=== PATIENT | male | born 1995 | race Caucasian/White ===

== ENCOUNTER 2021-09-21 14:38 | Emergency (ER) | payer OTHER ==
[~2021-09-21] VITALS: Ht 177.8 cm; Wt 104.5 kg
[2021-09-21 14:56] VITALS: TEMP 99.4
[2021-09-21] MEDS ORDERED: PROAIR HFA0.09 MG/AC IH (15:01)
[2021-09-21] MEDS ORDERED: RT ADVAIR 228 DISKUS IH (15:03)
[2021-09-21 17:39] LABS: BASO % 0.3 % (0.0-2.0); EOS # 0.1 K/mm3 (0.0-0.7); EOS % 1.3 % (0.0-4.0); GRAN # 1.8 K/mm3 (1.4-6.5); HEMATOCRIT 43.3 % (42.0-52.0); LYMPH # 1.6 K/mm3 (1.2-3.4); LYMPH % 40.1 % (20.0-51.0); MEAN CELL VOLUME 84 fl (80.0-100.0); MEAN CORPUSCULAR HEMOGLOBIN 29 pg (27-31); MEAN CORPUSCULAR HGB CONC 35 g/dl (33.0-37.0); MEAN PLATELET VOLUME 9.2 fl (7.4-10.4); MONO # 0.5 K/mm3 (0.1-0.6); PLATELET COUNT 249 K/mm3 (130-400); RED BLOOD COUNT 5.17 M/mm3 (4.20-5.60); REDCELL DISTRIBUTION WIDTH-CV 12.2 % (11.5-14.5)
[2021-09-21 17:58] LABS: ALBUMIN 3.8 gm/dL (3.5-5.0); BILIRUBIN,TOTAL 0.3 mg/dL (0.2-1.2); CALCIUM 8.8 mg/dL (8.4-10.2); CREATININE, serum 0.82 mg/dL (0.72-1.25); POTASSIUM 4.3 mmol/L (3.5-4.5); TOTAL PROTEIN 7.2 gm/dL (6.2-8.1)
[2021-09-21 19:11] VITALS: BP 118/88; PULSE 85
== END 2021-09-21 19:11 | disposition home or self-care (01) ==
LOC: COL.ER 14:38
PROVIDERS: Student in an Organized Health Care Education/Training Program
DX: J10.1 Influenza due to other identified influenza virus with other respiratory manifestations (principal); J45.909 Unspecified asthma, uncomplicated; Z20.822 Contact with and (suspected) exposure to COVID-19; Z79.899 Other long term (current) drug therapy